=== PATIENT | male | born 1965 | race Caucasian/White ===

== ENCOUNTER → 2024-09-21 10:12 | Outpatient (CLI) | payer OTHER, SELFPAY ==
--- NOTE | 2024-09-21 10:18 | DI.ECHO.S_ITS ---
[facility] : : [address] : : [place] : : [id number] : : Phone: [phone] Echocardiogram Report + + :Name: GERARDO MELLO Study Date: 09/21/2024 Height: 76 in : :Hospital ReadingLocation: Weight: 195 lb : : Gender: Male BSA: 2.2 m2 : :: 1965 Age: 59 yrs BP: 123/83 mmHg: :Reason For Study: BRADYCARDIA : :Ordering Physician: ANGIE, : :JATINDER Schmidt Performed By: Helena Quevedo : :Referring: JATINDER ADAMS D.O : + + Interpretation Summary The patient was in sinus bradycardia with heart rates between 44-51 bpm during the exam. The left ventricle is normal in size and wall thickness. Left ventricular ejection fraction is estimated to be 50 +/- 5%. The right ventricle is mildly dilated. The right ventricular systolic function is normal. Mild MR. There is mild tricuspid regurgitation. The IVC is of normal diameter and collapses greater than 50% with a sniff. This suggests a low right atrial pressure of 3 mm Hg. Procedure: A two-dimensional transthoracic echocardiogram with color flow and Doppler was performed. The study quality was technically adequate. There is no prior echocardiogram noted for this patient. The patient was in sinus bradycardia with heart rates between 44-51 bpm during the exam. Left Ventricle: The left ventricle is normal in size and wall thickness. There is no thrombus. Left ventricular ejection fraction is estimated to be 50 +/- 5%. There are no focal wall motion abnormalities. Diastolic parameters suggest probable normal left ventricular diastolic function and normal filling pressures. Right Ventricle: The right ventricle is mildly dilated. The right ventricular systolic function is normal. Atria: The left atrial size is normal. Right atrial size is normal. There is no Doppler evidence for an interatrial shunt. Mitral Valve: The mitral valve leaflets appear to open well. The mitral valve is normal. There is mild mitral regurgitation. Aortic Valve: The aortic valve is trileaflet. The aortic valve opens well. There is no aortic valve stenosis. There is trace aortic regurgitation. Tricuspid Valve: The tricuspid valve leaflets are thin and pliable. There is mild tricuspid regurgitation. Pulmonary artery pressures cannot be estimated because of the lack of a measurable TR jet velocity. Pulmonic Valve: The pulmonic valve leaflets are thin and pliable; valve motion is normal. There is trace pulmonic regurgitation. Great Vessels: The aortic root is normal size. The dimensions of the ascending aorta are normal. The IVC is of normal diameter and collapses greater than 50% with a sniff. This suggests a low right atrial pressure of 3 mm Hg. Pericardium/ Pleura There is no pericardial effusion. There is no pleural effusion. MMode/2D Measurements & Calculations LVIDd: 5.2 cm LVOT diam: 2.4 cm LVIDs: 3.2 cm Ao root diam: 2.9 cm FS: 38.2 % asc Aorta Diam: 3.7 cm EPSS: 0.90 cm Ao Arch Diam (Prox Trans): 3.0 cm IVSd: 0.76 cm LVPWd: 0.70 cm LV long. diameter/BSA (cm/m^2): 2.4 LV sys. diameter/BSA (cm/m^2): 1.5 LA A2 area: 21.8 cm2 RA long axis: 4.9 cm LA A4 area: 15.2 cm2 RA area: 16.8 cm2 LA length (vol): 4.9 cm RA vol: 48.4 ml LA vol: 57.4 ml RA : 22.1 ml/m2 LA vol index: 26.2 ml/m2 IVC diam: 1.9 cm RVD1 (basal): 4.1 cm RVD2 (mid): 3.8 cm TAPSE: 1.9 cm Doppler Measurements & Calculations Ao V2 max: 134.1 cm/sec LVOT Max Ronnie: 111.9 cm/sec Ao V2 mean: 92.1 cm/sec LV V1 max P.1 mmHg Ao max P.2 mmHg LV V1 VTI: 26.1 cm Ao mean P.8 mmHg PAUL(I,D): 3.6 cm2 Ao V2 VTI: 31.8 cm PAUL(V,D): 3.6 cm2 sev ratio: 0.82 PAUL indexed to BSA (cm^2/m^2): 1.6 MV E max ronnie: 69.7 cm/sec PA V2 max: 108.7 cm/sec MV A max ronnie: 52.3 cm/sec PA V2 mean: 69.5 cm/sec MV E/A: 1.3 PA mean P.2 mmHg Med Peak E' Ronnie: 10.7 cm/sec PA pr(Accel): 12.2 mmHg E/E' med: 6.5 Lat Peak E' Ronnie: 11.6 cm/sec E/E' lat: 6.0 E/e' average: 6.3 MV dec time: 0.19 sec SV(LVOT): 113.8 ml Reading Physician:05:27 PM
== END ==
LOC: ECHO 10:16
PROVIDERS: PCP Family Medicine; Referring Provider Family Medicine; Visit Provider Family Medicine
DX: I08.1 Rheumatic disorders of both mitral and tricuspid valves (principal); I45.10 Unspecified right bundle-branch block; R00.1 Bradycardia, unspecified
CPT/HCPCS: 93306